=== PATIENT | female | born 1965 | race Caucasian/White ===

== ENCOUNTER → 2016-07-04 | Outpatient (CLI) | payer BC | LOC: US 15:55 | DX: R09.89 Other specified symptoms and signs involving the circulatory and respiratory systems (principal) | CPT/HCPCS: 76536 ==

== ENCOUNTER → 2016-07-31 | Outpatient (CLI) | payer BC | LOC: KOH-I 12:02 | DX: R07.89 Other chest pain (principal) | CPT/HCPCS: 71020 ==

== ENCOUNTER → 2020-05-16 | Outpatient (CLI) | payer BC | LOC: HEART 5 15:00 | DX: R00.2 Palpitations (principal) ==

== ENCOUNTER → 2020-08-17 | Outpatient (CLI) | payer BC | LOC: ECHO 08:55 → NM 10:00 | DX: I47.2 Ventricular tachycardia (principal); R94.31 Abnormal electrocardiogram [ECG] [EKG]; I51.7 Cardiomegaly | CPT/HCPCS: ECHO; 78452; 93017; 93306; A9502 ==